=== PATIENT | male | born 1955 | race Caucasian/White ===

== ENCOUNTER 2019-08-27 08:22 | Inpatient (IN) | payer OTHER, SELFPAY ==
[~2019-08-27] VITALS: Ht 182.9 cm; Wt 140.6 kg
[2019-08-27 08:26] VITALS: BP_SYST 132
--- NOTE | 2019-08-27 09:43 | NUR ---
Placed in room 5. Placed on strategic marketing leader, blood pressure machine and pulse oximeter. To gown for exam. Side rails up.
--- NOTE | 2019-08-27 09:43 | NUR ---
Patient brought in by EMS for worsening COVID-19 symptoms. Patient reports feeling SOB, paramedics report O2 sat in the 80's in the field. Patient was placed on O2 at 3LPM via NC.
--- NOTE | 2019-08-27 10:00 | NUR ---
ER Dr. Wiley at bedside examining patient.
[2019-08-27] MEDS ORDERED: NACL 0.9% 1,000 ML IV ONE ×2 (10:30→11:30)
[2019-08-27 10:35] LABS: BASOPHILS % (AUTO) 0.1 % (0.0-2.0); HEMATOCRIT 44.7 % (36-54); HEMOGLOBIN 14.8 g/dL (14.0-18.0); LYMPHOCYTES # (AUTO) 0.7 K/uL (1.0-5.5); MEAN CORPUSCULAR HEMOGLOBIN 31 pg (27-31); MEAN CORPUSCULAR HGB CONC 33 % (32-36); MEAN CORPUSCULAR VOLUME 93 fL (79.0-98.0); MONOCYTES # (AUTO) 0.8 K/uL (0.0-1.0); MONOCYTES % (AUTO) 5.5 % (1.7-9.3); NEUTROPHILS # (AUTO) 13.1 K/uL (1.8-7.7); NEUTROPHILS % (AUTO) 89.4 % (40.0-70.0); PLATELET COUNT (AUTO) 294 K/uL (130-430); RED BLOOD CELL COUNT(AUTO) 4.83 MIL/uL (4.2-6.2); RED CELL DISTRIBUTION WIDTH 13.2 % (9.0-15.0); WHITE BLOOD COUNT (AUTO) 14.7 K/uL (4.8-10.8)
[2019-08-27 10:51] LABS: CALCIUM 8.5 mg/dL (8.4-11.0); CREATININE 1.24 mg/dL (0.55-1.30); POTASSIUM 3.6 mmol/L (3.5-5.1)
[2019-08-27 10:56] LABS: INR 1.1 (0.80-1.20); PROTHROMBIN TIME 11.5 SECS (9.5-12.5); TOTAL BILIRUBIN 1.2 mg/dL (0.0-1.0)
[2019-08-27 11:18] LABS: CKMB RELATIVE INDEX 0.2 (0.0-2.9); CREATINE KINASE MB 0.8 ng/mL (0-3.6)
[2019-08-27] MEDS ORDERED: MAGNESIUM SULFATE 50 ML IV PRN (11:30)
[2019-08-27] MEDS ORDERED: DOCUSATE SODIUM 100 MG CAPSULE PO PRN (11:30)
[2019-08-27] MEDS ORDERED: MUPIROCIN 2% TOPICAL OINTMENT 22 GM NS PRN (11:30)
[2019-08-27] MEDS ORDERED: ONDANSETRON HCL 4 MG/2 ML VIAL IVP PRN (11:30)
[2019-08-27] MEDS ORDERED: POTASSIUM CHLORIDE 20 MEQ TAB.PRT.SR PO PRN (11:30)
[2019-08-27] MEDS ORDERED: cefTRIAXone 1 GM IVPB PREMIX 50 ML IV ONE (11:30)
[2019-08-27] MEDS ORDERED: LORazepam 2 MG/ML VIAL IVP PRN (11:30)
[2019-08-27] MEDS ORDERED: ACETAMINOPHEN 325 MG TABLET PO PRN (11:30)
[2019-08-27] MEDS ORDERED: DEXAMETHASONE SOD PHOSPHATE 10 MG/ML VIAL IVP ONE (11:30)
[2019-08-27] MEDS ORDERED: MORPHINE 2 MG/ML INJ. SYRINGE IVP PRN ×2 (11:30)
[2019-08-27] MEDS ORDERED: DEXAMETHASONE SOD PHOSPHATE 10 MG/ML VIAL ONE (11:38)
--- NOTE | 2019-08-27 11:39 | NUR ---
Patient will be admitted to care of Dr. Holloway. Admitted to telemetry unit. Waiting for room assignment. Belongings list completed. Complete and up to date summary report printed. SBAR report to be given at bedside with opportunity for questions.
[2019-08-27] MEDS ORDERED: OMEG100010 PO (11:56)
[2019-08-27] MEDS ORDERED: IBUP-1816 PO (11:56)
[2019-08-27] MEDS ORDERED: AMLO5TAB92 PO (11:56)
[2019-08-27] MEDS ORDERED: METF-833 PO (11:56)
[2019-08-27] MEDS ORDERED: CHOL200026 PO (11:56)
[2019-08-27] MEDS ORDERED: LISI10TA PO (11:56)
[2019-08-27] MEDS ORDERED: LIP40 PO (11:56)
[2019-08-27] MEDS ORDERED: MONT10TA22 PO (11:56)
--- NOTE | 2019-08-27 11:56 | NUR ---
Medication reconciliation completed with information provided by patient. Any prior medication reconciliation on file was reviewed and corrected.
[2019-08-27] MEDS ORDERED: ENOXAPARIN SODIUM 40 MG/0.4 ML SYRINGE SUBCUT ONE (13:00)
--- NOTE | 2019-08-27 13:45 | NUR ---
Patient placed in hospital bed.
--- NOTE | 2019-08-27 13:58 | NUR ---
Multiple medications not available. Pharmacy notified.
[2019-08-27] MEDS: DECADRON 4 MG TABLET PO SCH ×2 (14:43→15:35)
[2019-08-27] MEDS: AZITHROMYCIN 250 MG TABLET PO ONE ×2 (14:43→15:35)
[2019-08-27] MEDS: ASCORBIC ACID 500 MG TABLET PO ONE ×2 (14:43→15:35)
[2019-08-27] MEDS: CHOLECALCIFEROL (VITAMIN D3) 2,000 UNIT TABLET PO ONE ×2 (14:43→15:36)
[2019-08-27] MEDS: NACL 0.9% 1,000 ML IV SCH (14:57)
[2019-08-27] MEDS ORDERED: ALBUTEROL MDI INHALATION 8 GM INH INH PRN (15:00)
[2019-08-27] MEDS ORDERED: ENOXAPARIN SODIUM 40 MG/0.4 ML SYRINGE ONE (15:04)
[2019-08-27] MEDS ORDERED: MONTELUKAST 10 MG TABLET PO ONE (17:00)
[2019-08-27] MEDS ORDERED: amLODIPine BESYLATE 5 MG TABLET PO ONE (17:00)
[2019-08-27] MEDS ORDERED: LISINOPRIL 10 MG TABLET (PRINIVIL) PO ONE (17:00)
--- NOTE | 2019-08-27 17:00 | NUR ---
Singulair and metformin not available. Spoke with Wagner in pharmacy.
--- NOTE | 2019-08-27 18:20 | NUR ---
Dinner tray provided.
--- NOTE | 2019-08-27 19:10 | NUR ---
Dr. Smith called in for consult.
--- NOTE | 2019-08-27 19:15 | NUR ---
Report given to KACI Emerson for continuation of care. All needs endorsed.
--- NOTE | 2019-08-27 20:20 | NUR ---
VSS no s/s of acute distress Resting on hospital bed rails up
[2019-08-27] MEDS ORDERED: ZOLPIDEM TARTRATE 5 MG TABLET PO PRN (21:00)
--- NOTE | 2019-08-27 21:59 | NUR ---
Utilized O2 Oximizer to 8 L, O2 sat at 98%, Pt states feels much better
--- NOTE | 2019-08-27 23:01 | NUR ---
Pt has large BM via BSC, well tolerated
[2019-08-28] MEDS: NACL 0.9% 1,000 ML IV SCH ×2 (00:07→11:22)
--- NOTE | 2019-08-28 00:12 | NUR ---
Pt states "feeling better." O2 via Oximizer effective, AEB O2 sat remains above 95%
--- NOTE | 2019-08-28 03:30 | NUR ---
Pt had large BM via BSC, well tolerated
--- NOTE | 2019-08-28 05:29 | NUR ---
Pt had 1 x large BM via BSC, well tolerated
[2019-08-28 06:32] LABS: BASOPHILS % (AUTO) 0.2 % (0.0-2.0); HEMATOCRIT 38.6 % (36-54); HEMOGLOBIN 13.1 g/dL (14.0-18.0); LYMPHOCYTES # (AUTO) 0.7 K/uL (1.0-5.5); LYMPHOCYTES % (AUTO) 5.8 % (20.5-51.5); MEAN CORPUSCULAR HEMOGLOBIN 32 pg (27-31); MEAN CORPUSCULAR HGB CONC 34 % (32-36); MEAN CORPUSCULAR VOLUME 94 fL (79.0-98.0); MONOCYTES # (AUTO) 0.6 K/uL (0.0-1.0); MONOCYTES % (AUTO) 5.5 % (1.7-9.3); NEUTROPHILS # (AUTO) 10.4 K/uL (1.8-7.7); NEUTROPHILS % (AUTO) 88.5 % (40.0-70.0); PLATELET COUNT (AUTO) 315 K/uL (130-430); RED CELL DISTRIBUTION WIDTH 13.2 % (9.0-15.0); WHITE BLOOD COUNT (AUTO) 11.7 K/uL (4.8-10.8)
[2019-08-28 06:36] LABS: CALCIUM 7.8 mg/dL (8.4-11.0); CREATININE 1.12 mg/dL (0.55-1.30); POTASSIUM 3.5 mmol/L (3.5-5.1)
--- NOTE | 2019-08-28 06:39 | NUR ---
Pt is working on paperwork to give [facility] auth for COVID pos documentation
--- NOTE | 2019-08-28 07:10 | NUR ---
Report recieved from KACI Emerson for continuation of care.
--- NOTE | 2019-08-28 07:20 | NUR ---
Patient was off monitor, placed back on telemetry monitor. Patient denies any pain or distress at this time. Patient is on oximizer at 6LPM.
[2019-08-28 08:21] LABS: ERYTHROCYTE SEDIMENTATION RATE 63 MM/HR (0-15)
[2019-08-28] MEDS: ENOXAPARIN SODIUM 40 MG/0.4 ML SYRINGE SUBCUT SCH (08:23)
[2019-08-28] MEDS: ASCORBIC ACID 500 MG TABLET PO SCH (08:24)
[2019-08-28] MEDS: AZITHROMYCIN 250 MG TABLET PO SCH (08:24)
[2019-08-28] MEDS: amLODIPine BESYLATE 5 MG TABLET PO SCH (08:25)
[2019-08-28] MEDS: CHOLECALCIFEROL (VITAMIN D3) 2,000 UNIT TABLET PO SCH (08:25)
[2019-08-28] MEDS: LISINOPRIL 10 MG TABLET (PRINIVIL) PO SCH (08:25)
[2019-08-28] MEDS: ATORVASTATIN 20 MG TABLET PO SCH (08:26)
--- NOTE | 2019-08-28 08:44 | NUR ---
Fax recieved from [facility] regarding COVID-19 test. Patient was tested on 08/23/2019, positive test result was reported 08/25/2019.
--- NOTE | 2019-08-28 10:26 | NUR ---
[facility]. Licensed nurse present. IV present no signs or symptoms of infiltration.
--- NOTE | 2019-08-28 10:41 | NUR ---
ADMISSION NOTE Received patient from ER via gayathri, received report from TEZ/ RN. Patient admitted with diagnosis of COVID/PNEUMONIA. Patient oriented to hospital routine, call light, toileting and safety-patient verbalized understanding.
[2019-08-28 10:45] LABS: C-REACTIVE PROTEIN QUANT 22.8 mg/dL (0-0.5)
--- NOTE | 2019-08-28 10:45 | NUR ---
Initial Notes: Received patient from er per gayathri. Placed on telemetry.Iv saline lock at right ac intact. On oximizer 6l/min,with good saturation.On negative pressure room.Patient covid 19 positive,precaution rendered. Awake,alert and oriented x4. Call light with in reach. Bed locked at lowest position. Continue to monitor.
[2019-08-28 11:03] VITALS: BP_SYST 115
--- NOTE | 2019-08-28 11:14 | NUR ---
CONSULTATION PAGED/CALLED Reason for Consultation: [] COVID 19 Person Who was Notified: [] PAGED DIRECTLY Consulting Physician: [] DR ELLIOTTR Library Technical Assistant Specialty: [] PULMO Ordering Physician: [] DR ROCKWELL
--- NOTE | 2019-08-28 11:17 | NUR ---
CONSULTATION PAGED/CALLED Reason for Consultation: [] COVID 19 Person Who was Notified: [] NEO Consulting Physician: [] DR PINZON Master Control Operator Specialty: [] ID Ordering Physician: [] DR ROCKWELL
[2019-08-28 11:42] VITALS: BP_SYST 115
[2019-08-28 11:47] VITALS: BP_SYST 115
--- NOTE | 2019-08-28 12:58 | NUR ---
Lunch: Served lunch to patient.Patient sitting on the bed. No distress.
[2019-08-28] MEDS: DECADRON 4 MG TABLET PO SCH (13:20)
--- NOTE | 2019-08-28 14:39 | NUR ---
Rn Rounds: Patient resting during rounds. Tolerated oximizer 6l/min,good saturation.
--- NOTE | 2019-08-28 15:39 | NUR ---
Pulmo Rounds: Patient seen by Dr. Evans. No new orders made.
[2019-08-28 16:00] VITALS: BP_SYST 102
[2019-08-28] MEDS: MONTELUKAST 10 MG TABLET PO SCH (18:15)
--- NOTE | 2019-08-28 18:40 | NUR ---
CLOSING NOTES: PATIENT AMBULATED TO THE TOILET. DINNER TRAY SERVED. NO ACUTE DISTRESS. CALL LIGHT WITH IN REACH. BED LOCKED AT LOWEST POSITION. CONTINUE TO MONITOR.
--- NOTE | 2019-08-28 19:20 | NUR ---
CHANGE OF SHIFT; pt. endorsed, new admission, no distress. on contact isolation for Covid, room is on negative pressure. call light within reach.
[2019-08-28 20:00] VITALS: BP_SYST 127
--- NOTE | 2019-08-28 20:00 | NUR ---
NOTES; pt. checked, awake, alert and oriented. IV pump alarming, site on rt. antecubital with occlusion , pt. said been alarming all day, request to change IV site. on 6 liters O2 with oximizer, HOB elevated. occ. bouts of non productive cough. moves all extremities. on tag marker and shows sinus rhythm. pt. aware of isolation precaution due to Covid. call light within reach.
--- NOTE | 2019-08-28 21:00 | NUR ---
NOTES; attempted to insert another IV site but unsuccessful, asked nurse Jono, # 20 on left forearm, resume IVF and new IV antibiotic. pt. needs attended. call light within reach.
--- NOTE | 2019-08-28 23:00 | NUR ---
NOTES: pt. awake, ambulated to the restroom. informed pt. that he is having a room mate. IVF continuous.
[2019-08-29] MEDS: NACL 0.9% 1,000 ML IV SCH ×2 (00:20→13:04)
--- NOTE | 2019-08-29 01:18 | NUR ---
NOTES: pt. sleeping when checked. no complaints noted. cardiac pattern unchanged. call light within reach.
--- NOTE | 2019-08-29 04:04 | NUR ---
NOTES: condition observed. pt. been sleeping. IVF continuous. cardiac pattern unchanged.
[2019-08-29 05:30] VITALS: BP_SYST 123
--- NOTE | 2019-08-29 05:30 | NUR ---
NOTES: pt. claims he did not get enough sleep, watched movie on his cellphone. IV continuous. instructed on use of incentive spirometer. still with occ. bouts of non productive cough. ambulated to the restroom. pt. needs attended.calllight within reach.
--- NOTE | 2019-08-29 06:30 | NUR ---
CLOSING NOTES; PT. RESTING, NO DISTRESS O@ KEPT @ 6L PER OXIMIZER. FOR FURTHER CARE AND ASSISTANCE. WILL ENDORSE TO INCOMING SHIFT.
[2019-08-29 07:14] LABS: BASOPHILS % (AUTO) 0.3 % (0.0-2.0); HEMATOCRIT 39.6 % (36-54); HEMOGLOBIN 13.2 g/dL (14.0-18.0); LYMPHOCYTES # (AUTO) 0.6 K/uL (1.0-5.5); LYMPHOCYTES % (AUTO) 4.9 % (20.5-51.5); MEAN CORPUSCULAR HEMOGLOBIN 31 pg (27-31); MEAN CORPUSCULAR HGB CONC 33 % (32-36); MEAN CORPUSCULAR VOLUME 94 fL (79.0-98.0); MONOCYTES # (AUTO) 1.1 K/uL (0.0-1.0); MONOCYTES % (AUTO) 8.5 % (1.7-9.3); NEUTROPHILS # (AUTO) 11.4 K/uL (1.8-7.7); NEUTROPHILS % (AUTO) 86.3 % (40.0-70.0); PLATELET COUNT (AUTO) 374 K/uL (130-430); RED BLOOD CELL COUNT(AUTO) 4.23 MIL/uL (4.2-6.2); RED CELL DISTRIBUTION WIDTH 13.4 % (9.0-15.0); WHITE BLOOD COUNT (AUTO) 13.2 K/uL (4.8-10.8)
[2019-08-29 07:19] LABS: C-REACTIVE PROTEIN QUANT 10.1 mg/dL (0-0.5); CALCIUM 8.2 mg/dL (8.4-11.0); POTASSIUM 3.8 mmol/L (3.5-5.1)
--- NOTE | 2019-08-29 07:30 | NUR ---
OPENING NOTES: RECEIVED PATIENT FROM CONSULTANT [employer]. VICE PRESIDENT JAGUAR BRAND (EX ) NURSE. PATIENT IS AWAKE AND ALERT x4 LAYING DOWN IN BED. PATIENT DENIES ANY PAIN AT THE MOMENT. PATIENT IS TOLERATING OXYGEN ON 8 L VIA OXIMIZER WITH NO SIGNS OF DISTRESS OR SHORTNESS OF BREATH NOTED. IV SITE IS PATENT WITH NO SIGNS OF INFILTRATION NOTED AND RUNNING FLUIDS ORDERED. PATIENT IN STABLE CONDITION. SAFETY, FALL, ASPIRATION, CONTACT AND DROPLET PRECAUTIONS ARE IN PLACE. BED LOCKED IN LOWEST POSITION WITH CALL LIGHT IN REACH. WILL CONTINUE TO MONITOR PATIENT FOR ANY CHANGES.
[2019-08-29 08:00] VITALS: BP_SYST 135
[2019-08-29 08:20] LABS: ERYTHROCYTE SEDIMENTATION RATE 58 MM/HR (0-15)
[2019-08-29] MEDS: ATORVASTATIN 20 MG TABLET PO SCH (09:28)
[2019-08-29] MEDS: AZITHROMYCIN 250 MG TABLET PO SCH (09:29)
[2019-08-29] MEDS: LISINOPRIL 10 MG TABLET (PRINIVIL) PO SCH (09:29)
[2019-08-29] MEDS: ENOXAPARIN SODIUM 40 MG/0.4 ML SYRINGE SUBCUT SCH (09:29)
[2019-08-29] MEDS: CHOLECALCIFEROL (VITAMIN D3) 2,000 UNIT TABLET PO SCH (09:29)
[2019-08-29] MEDS: amLODIPine BESYLATE 5 MG TABLET PO SCH (09:29)
[2019-08-29] MEDS: ASCORBIC ACID 500 MG TABLET PO SCH (09:29)
--- NOTE | 2019-08-29 10:24 | NUR ---
RN ROUNDS: PATIENT IS AWAKE AND ALERT x4 SITTING UP IN BED. PATIENT DENIES ANY PAIN AT THE MOMENT. PATIENT IS TOLERATING OXYGEN ON 6 L OXIMIZER WITH NO SIGNS OF DISTRESS OR SHORTNESS OF BREATH NOTED. IV SITE IS PATENT WITH NO SIGNS OF INFILTRATION NOTED. PATIENT IN STABLE CONDITION. WILL CONTINUE TO MONITOR PATIENT FOR ANY CHANGES.
--- NOTE | 2019-08-29 11:36 | NUR ---
Dietitian Recommendations *Recommend: [facility] diet. *Recommend: double portion of meat and vegetables. *Continue VIT and zinc supplements. *Monitor BG/accuchecks. Please see Nutritional Assessment for details [facility] Addendum: 08/29/19 at [address] [facility] left voicemail for at answering service for [facility] rec. Time: 1201 [facility] Addendum: 08/29/19 at [address] [facility] received call back from Dr. Goldstein 1204. And asked FCO to place order for [facility] diet. [facility] HART
[2019-08-29 12:00] VITALS: BP_SYST 128
--- NOTE | 2019-08-29 12:02 | NUR ---
RN ROUNDS: PATIENT IS AWAKE AND ALERT x4 LAYING DOWN IN BED. PATIENT DENIES ANY PAIN AT THE MOMENT. PATIENT IS TOLERATING OXYGEN ON 6 L OXIMIZER WITH NO SIGNS OF DISTRESS OR SHORTNESS OF BREATH NOTED. IV SITE IS PATENT WITH NO SIGNS OF INFILTRATION NOTED. PATIENT IN STABLE CONDITION. WILL CONTINUE TO MONITOR PATIENT FOR ANY CHANGES.
--- NOTE | 2019-08-29 12:50 | NUR ---
OXYGEN: PATIENT IS TOLERATING OXYGEN ON 6L OXIMIZER. PATIENT WANTS TO TAKE THE ENTIRE THING OFF BUT PATIENT STILL FEELS SHORT OF BREATH. EDUCATED PATIENT ON THE IMPORTANCE OF TITRATING DOWN INSTEAD OF COMPLETELY TAKING IT OFF RIGHT AWAY. PATIENT AGREED TO TITRATE DOWN TO 4L TO SEE HOW HE FEELS. WILL CONTINUE TO MONITOR PATIENT FOR ANY CHANGES.
[2019-08-29] MEDS: DECADRON 4 MG TABLET PO SCH (13:04)
--- NOTE | 2019-08-29 14:23 | NUR ---
RN ROUNDS: PATIENT IS ASLEEP LAYING DOWN IN BED. PATIENT IS TOLERATING OXYGEN ON 4L OXIMIZER WITH NO SIGNS OF DISTRESS OR SHORTNESS OF BREATH NOTED. IV SITE IS PATENT WITH NO SIGNS OF INFILTRATION NOTED. PATIENT IN STABLE CONDITION. WILL CONTINUE TO MONITOR PATIENT FOR ANY CHANGES.
[2019-08-29 16:00] VITALS: BP_SYST 136
--- NOTE | 2019-08-29 16:25 | NUR ---
RN ROUNDS: PATIENT IS AWAKE AND ALERT x4 LAYING DOWN IN BED. PATIENT IS TOLERATING OXYGEN ON ROOM AIR AT THE MOMENT WITH NO SIGNS OF DISTRESS OR SHORTNESS OF BREATH NOTED. PATIENT IN STABLE CONDITION. WILL CONTINUE TO MONITOR PATIENT FOR ANY CHANGES.
--- NOTE | 2019-08-29 17:50 | NUR ---
OXYGEN: OXYGEN TITRATED DOWN TO 2 L VIA OXIMIZER. PATIENT IS TOLERATING IT WELL. NO SIGNS OF DISTRESS OR SHORTNESS OF BREATH NOTED. WILL CONTINUE TO MONITOR.
[2019-08-29] MEDS: MONTELUKAST 10 MG TABLET PO SCH (18:40)
--- NOTE | 2019-08-29 18:43 | NUR ---
CLOSING NOTES: PATIENT IS AWAKE AND ALERT x4 SITTING AT THE SIDE OF THE BED IN A CHAIR. PATIENT DENIES ANY PAIN AT THE MOMENT. PATIENT IS TOLERATING OXYGEN ON ROOM AIR AT THE MOMENT WITH NO SIGNS OF DISTRESS OR SHORTNESS OF BREATH NOTED. IV SITE IS PATENT WITH NO SIGNS OF INFILTRATION NOTED AND RUNNING FLUIDS ORDERED. PATIENT IN STABLE CONDITION. SAFETY, FALL, ASPIRATION, CONTACT AND DROPLET PRECAUTIONS REMAINED IN PLACE THROUGHOUT THE SHIFT. BED LOCKED IN LOWEST POSITION WITH CALL LIGHT IN REACH. WILL ENDORSE PATIENT CARE TO ONCOMING INTELLECTUAL PROPERTY PARALEGAL NURSE.
--- NOTE | 2019-08-29 19:20 | NUR ---
REPORT RECEIVED FROM DAY SHIFT NURSE. PT IS ON OXYGEN VIA OXYMIZER AT 2L/MIN AND NO RESPIRATORY DISTRESS NOTED. IVF OF NS IS INFUSING WELL IN LFA AT 100ML/HR WITHOUT ANY SIGNS OF INFILTRATION. FALL AND SAFETY PRECAUTIONS ARE IN PLACE.
[2019-08-29 20:00] VITALS: BP_SYST 110
--- NOTE | 2019-08-29 21:16 | NUR ---
HS MEDICATIONS GIVEN. NO C/O PAIN OR DISCOMFORT. FALL AND SAFETY PRECAUTIONS ARE IN PLACE. CALL LIGHT IS WITH PT AND BED IS IN THE LOWEST/LOCKED POSITIONS.
--- NOTE | 2019-08-29 23:00 | NUR ---
PT IS SLEEPING COMFORTABLY IN BED WITH OXYGEN ON AT 2L/MIN VIA OXYMIZER. IVF IS INFUSING WELL IN LFA AT 100ML/HR. FALL, DROPLET ISOLATION AND SAFETY PRECAUTIONS ARE IN PLACE.
[2019-08-30] VITALS: BP_SYST 124
[2019-08-30] MEDS: NACL 0.9% 1,000 ML IV SCH ×4 (00:20→23:53)
--- NOTE | 2019-08-30 01:00 | NUR ---
PT CONTINUES TO SLEEP WITHOUT ANY RESPIRATORY DISTRESS NOTED. IVF IS INFUSING WELL IN LFA AT 100ML/HR. FALL, DROPLET ISOLATION AND SAFETY PRECAUTIONS ARE IN PLACE.
--- NOTE | 2019-08-30 03:00 | NUR ---
RESTING QUIETLY IN BED AND NO RESPIRATORY DISTRESS NOTED. IVF IS INFUSING WELL IN LFA.
--- NOTE | 2019-08-30 04:16 | NUR ---
POSITIVE COVID 19 TEST RESULT RECEIVED FROM THE LAB. WILL NOTIFY DR. ROCKWELL IN AM.
--- NOTE | 2019-08-30 06:22 | NUR ---
PT IS AWAKE AND RESTING QUIETLY IN BED. NO RESPIRATORY DISTRESS NOTED. ALL PT'S NEEDS WERE ATTENDED TO. IVF IS INFUSING WELL IN LFA WITHOUT ANY SIGNS OF INFILTRATION. FALL, DROPLET ISOLATION AND SAFETY PRECAUTIONS ARE IN PLACE. WILL ENDORSE TO DAY SHIFT NURSE.
--- NOTE | 2019-08-30 07:23 | NUR ---
REPORT GIVEN TO DAY SHIFT NURSE. ENDORSED POSITIVE COVID TEST RESULT TO DAY SHIFT NURSE TO FOLLOW UP WITH MD.
--- NOTE | 2019-08-30 07:27 | NUR ---
ATTENDING MD DR Glen TAYLOR, STREET LIGHT INSPECTOR FOR DR ROCKWELL WAS CALLED, RE: TO INFORM THAT PT IS POSITIVE FOR INHOUSE FIRST COVID TEST.
[2019-08-30 07:39] LABS: BASOPHILS % (AUTO) 0.2 % (0.0-2.0); HEMOGLOBIN 13.3 g/dL (14.0-18.0); LYMPHOCYTES # (AUTO) 0.5 K/uL (1.0-5.5); LYMPHOCYTES % (AUTO) 4.6 % (20.5-51.5); MEAN CORPUSCULAR HEMOGLOBIN 31 pg (27-31); MEAN CORPUSCULAR HGB CONC 34 % (32-36); MEAN CORPUSCULAR VOLUME 92 fL (79.0-98.0); MONOCYTES # (AUTO) 1.3 K/uL (0.0-1.0); MONOCYTES % (AUTO) 11.4 % (1.7-9.3); NEUTROPHILS # (AUTO) 9.5 K/uL (1.8-7.7); NEUTROPHILS % (AUTO) 83.8 % (40.0-70.0); PLATELET COUNT (AUTO) 369 K/uL (130-430); RED BLOOD CELL COUNT(AUTO) 4.24 MIL/uL (4.2-6.2); RED CELL DISTRIBUTION WIDTH 13.1 % (9.0-15.0); WHITE BLOOD COUNT (AUTO) 11.3 K/uL (4.8-10.8)
[2019-08-30 08:24] LABS: ALBUMIN 2.4 g/dL (3.4-4.8); BILIRUBIN,DIRECT 0.2 mg/dL (0.0-0.3); C-REACTIVE PROTEIN QUANT 5.6 mg/dL (0-0.5); CREATININE 0.94 mg/dL (0.55-1.30); POTASSIUM 3.5 mmol/L (3.5-5.1); TOTAL BILIRUBIN 0.9 mg/dL (0.0-1.0)
--- NOTE | 2019-08-30 08:30 | NUR ---
OPENING NOTES, RECEIVED PT IN BED, PT IS AAOX4, DENIES PAIN, PT IS SOB AFTER WALKING FROM BED TO BATHROOM AND BACK, NO RESP DISTRESS. VITALS WNL, NO FEVER, SAFETY PRECAUTION IN PLACE, CALL LIGHT IN REACH BED IN LOW POSITION. ENCOURAGED TO CALL FOR ANY CONCERNS AND PAIN MEDS. BREAKFAST AND AM MEDS GIVEN.
[2019-08-30 08:36] LABS: ERYTHROCYTE SEDIMENTATION RATE 39 MM/HR (0-15)
[2019-08-30] MEDS: LISINOPRIL 10 MG TABLET (PRINIVIL) PO SCH (08:57)
[2019-08-30] MEDS: ATORVASTATIN 20 MG TABLET PO SCH (08:57)
[2019-08-30] MEDS: amLODIPine BESYLATE 5 MG TABLET PO SCH (08:57)
[2019-08-30] MEDS: CHOLECALCIFEROL (VITAMIN D3) 2,000 UNIT TABLET PO SCH (08:58)
[2019-08-30] MEDS: AZITHROMYCIN 250 MG TABLET PO SCH (08:58)
[2019-08-30] MEDS: ASCORBIC ACID 500 MG TABLET PO SCH (08:58)
[2019-08-30] MEDS: ENOXAPARIN SODIUM 40 MG/0.4 ML SYRINGE SUBCUT SCH (10:14)
--- NOTE | 2019-08-30 10:30 | NUR ---
OXYMIZER REPLACED WITH NC, PT ON O2 1L NC NOW, WILL CONT TO MONITOR. PT REMINDED TO DO INCENTIVE SPIROMETRY EVERY HOUR.
[2019-08-30 11:39] VITALS: BP_SYST 152
--- NOTE | 2019-08-30 12:20 | NUR ---
PT SAT ON O2 2L NC IS 93-94%. PT DENIES PAIN, NO SOB.
[2019-08-30] MEDS: DECADRON 4 MG TABLET PO SCH (12:24)
[2019-08-30 17:30] VITALS: BP_SYST 120
--- NOTE | 2019-08-30 17:30 | NUR ---
PT IN BED, RESTING IN CHAIR, SERVED DINNER, VITALS WNL, NO FEVER, NO SOB, WILL CONT TO MONITOR.
[2019-08-30] MEDS: MONTELUKAST 10 MG TABLET PO SCH (18:34)
--- NOTE | 2019-08-30 18:46 | NUR ---
CLOSING NOTES, PT HAS BEEN STABLE THE WHOLE SHIFT, PT'S O2 SAT ON ROOM AIR THIS PM WAS 92%. PT KEPT ON O2 1LI THE WHOLE SHIFT, WILL ENDORSE TO NIGHT NURSE TO KEEP PT OF O2 NC PER DR TAYLOR AND CHECK O2SAT , IF PT DESAT'S PT CAN BE RECONNECTED TO O2 2L PER NC. WILL ENDORSE TO NIGHT NURSE. DCP IN AM PER DR TAYLOR. U/S ABD TO CHECK LIVER WAS NOT DONE DUE TO PT STILL ON COVID ISOLATION PER RADIOISOTOPE TECHNOLOGIST. PAGED DR TAYLOR AGAIN TO CHECK IF ABDOMINAL U/S IS CRITICAL PER RADIOISOTOPE TECHNOLOGIST.
--- NOTE | 2019-08-30 19:07 | NUR ---
DR TAYLOR SAID IT IS OKAY TO HOLD U/S ABD. WILL DECIDE IN AM FOR DC HOME.
--- NOTE | 2019-08-30 19:30 | NUR ---
OPENING NOTES PT RESTING IN BED, ALERT & ORIENTED X4. BREATHING EVEN AND UNLABORED TO O2 VIA NC AT 1L. VSS. O2 SAT 94%. PT SURESH ANY PAIN OR SOB AT THIS TIME. IVF RUNNING ORDERED RATE. PT TOLERATING WELL. BED LOCKED IN LOWEST POSITION. CALL LIGHT WITHIN REACH. SAFETY AND ISOLATION PRECAUTIONS MAINTAINED. WILL MONITOR.
[2019-08-30 20:00] VITALS: BP_SYST 125
--- NOTE | 2019-08-30 21:35 | NUR ---
MEDICATION PASS SCHEDULED MEDICATION ADMINISTERED ORDERED. DISCUSSED MEDICATIONS ACTIONS AND POTENTIAL SIDE EFFECTS. PT VERBALIZED UNDERSTANDING. NO S/S OF DISTRESS NOTED. BREATHING EVEN AND UNLABORED TO O2 VIA NC AT 1L. CALL LIGHT WITHIN REACH. SIDE RAILS UP. SAFETY AND ISOLATION PRECAUTIONS ARE IN PLACE. WILL CONTINUE TO MONITOR.
[2019-08-31] VITALS: BP_SYST 130
--- NOTE | 2019-08-31 00:05 | NUR ---
RN ROUNDS PT RESTING IN BED. REMAINS OXYGEN 1L. PT SURESH ANY PAIN OR SHORTNESS OF BREATH. IVF RUNNING ORDERED RATE. NO S/S OF INFILTRATION NOTED. CALL LIGHT WITHIN REACH. SIDE RAILS UP. SAFETY AND ISOLATION PRECAUTIONS MAINTAINED. WILL CONTINUE TO MONITOR.
--- NOTE | 2019-08-31 02:35 | NUR ---
RN ROUNDS PT RESTING IN BED WITH EYES CLOSED. CHEST RISE AND FALL SYMMETRICAL. PT SURESH ANY PAIN OR SHORTNESS OF BREATH. IVF RUNNING ORDERED RATE. NO S/S OF INFILTRATION NOTED. CALL LIGHT WITHIN REACH. SIDE RAILS UP. SAFETY AND ISOLATION PRECAUTIONS MAINTAINED. WILL CONTINUE TO MONITOR.
--- NOTE | 2019-08-31 05:00 | NUR ---
RN ROUNDS PT RESTING IN BED. OFF OXYGEN, O2 SAT 94%. PT TOLERATING WELL. PT SURESH SHORTNESS OF BREATH. NO S/S OF DISTRESS NOTED. IVF RUNNING ORDERED RATE. NO S/S OF INFILTRATION NOTED. CALL LIGHT WITHIN REACH. SIDE RAILS UP. SAFETY AND ISOLATION PRECAUTIONS MAINTAINED. WILL CONTINUE TO MONITOR.
--- NOTE | 2019-08-31 07:01 | NUR ---
CLOSING NOTES PT RESTING IN BED. BREATHING EVEN AND UNLABORED TO ROOM AIR. VSS. O2 SAT 94%. PT SURESH ANY PAIN OR SOB AT THIS TIME. IVF RUNNING ORDERED RATE. BED LOCKED IN LOWEST LEVEL. CALL LIGHT WITHIN REACH. SAFETY AND ISOLATION PRECAUTIONS MAINTAINED. ALL NEEDS ARE MET THROUGHOUT SHIFT. WILL MONITOR UNTIL ENDORSE TO DAY SHIFT RN.
--- NOTE | 2019-08-31 07:45 | NUR ---
OPENING, PT SEEN IN BED, AAOX4, DENIES PAIN, NO SOB, ON ROOM , O2 SAT WAS 94%, PT AMBULATED TO BATHROOM AND BACK TO BED, O2 SAT WAS CHECKED ON ROOM AIR, THE LOWEST SAT WAS 91% WHICH WENT UP TO 92-93% AFTER RESTING FOR A WHILE. WILL CONT TO MONITOR PT.
[2019-08-31 07:50] VITALS: BP_SYST 136
[2019-08-31] MEDS: ENOXAPARIN SODIUM 40 MG/0.4 ML SYRINGE SUBCUT SCH (08:00)
--- NOTE | 2019-08-31 08:00 | NUR ---
pt given lovenox sq on the left upper quadrant abd.
[2019-08-31] MEDS: ASCORBIC ACID 500 MG TABLET PO SCH (08:12)
[2019-08-31] MEDS: LISINOPRIL 10 MG TABLET (PRINIVIL) PO SCH (08:12)
[2019-08-31] MEDS: ATORVASTATIN 20 MG TABLET PO SCH (08:12)
[2019-08-31] MEDS: amLODIPine BESYLATE 5 MG TABLET PO SCH (08:12)
[2019-08-31] MEDS: CHOLECALCIFEROL (VITAMIN D3) 2,000 UNIT TABLET PO SCH (08:12)
[2019-08-31] MEDS: AZITHROMYCIN 250 MG TABLET PO SCH (08:13)
[2019-08-31] MEDS ORDERED: DEC4 PO (09:25)
[2019-08-31] MEDS ORDERED: AZIT250T PO (09:25)
[2019-08-31] MEDS ORDERED: APIX2.5T PO (09:25)
[2019-08-31 10:41] VITALS: BP_SYST 136
--- NOTE | 2019-08-31 11:30 | NUR ---
dc instuction discussed with pt including the covid 19 isolation, brochure discussed and given re covid to patient.
[2019-08-31 12:00] VITALS: BP_SYST 128
--- NOTE | 2019-08-31 12:40 | NUR ---
D/C Patient Patient given medication reconciliation form and D/C instructions. Exit Care provided. Patient verbalized understanding. MD discussed with patient the results and treatment provided. Ambulatory with steady gait for discharge to home. Patient in stable condition, ID band removed. IV catheter removed, intact and dressing applied, no active bleeding. Rx of given. Patient educated on pain management. All belongings sent with patient.
--- NOTE | 2019-09-05 12:01 | NUR ---
DISCHARGE FOLLOW UP CALL: HOSPITALITY AMBASSADOR phoned pt @ [phone] and spoke with spouse, Wendy. Per spouse, pt is "really good" and pt's "fatigue went down" and "appetite increased". Pt's last dose of medication is today and the patient has been isolating himself since he went home. Pt also has a follow up appointment with his PCP tomorrow 09/05. No questions on the discharge and prescription instructions. HOSPITALITY AMBASSADOR encouraged spouse to call SS if any questions arise. No further SS call needed.
== END 2019-08-31 12:40 | disposition home or self-care (01) | DRG 871 ==
LOC: SED 08:22 → STU 11:31
PROVIDERS: ADMIT General Practice; ATTEND General Practice
DX: A41.89 Other specified sepsis (principal); U07.1 COVID-19; J96.01 Acute respiratory failure with hypoxia; J12.89 Other viral pneumonia; E44.0 Moderate protein-calorie malnutrition; E87.1 Hypo-osmolality and hyponatremia; Z68.41 Body mass index [BMI] 40.0-44.9, adult; E78.5 Hyperlipidemia, unspecified; G47.33 Obstructive sleep apnea (adult) (pediatric); I10 Essential (primary) hypertension; R74.0 Nonspecific elevation of levels of transaminase and lactic acid dehydrogenase [LDH]; E66.01 Morbid (severe) obesity due to excess calories; F43.9 Reaction to severe stress, unspecified; E11.9 Type 2 diabetes mellitus without complications; Z80.0 Family history of malignant neoplasm of digestive organs
CPT/HCPCS: 36415; 71045; 80048; 80053; 80076; 82550-TC; 82553-TC; 82728; 83036; 83605; 83615-TC; 83735-TC; 83880; 84484; 85025; 85379; 85384-TC; 85610-TC; 85651-TC; 85730-TC; 86140; 87040-TC; 93005; 94760; 96361; 96365; 96372; 96375; 99291; G0378; J0696; J1100; J1650; J7030; J7050; J8540; Q0144; U0003-CS

== ENCOUNTER 2020-05-28 18:20 | Emergency (ER) | payer OTHER, SELFPAY ==
[~2020-05-28] VITALS: Ht 167.6 cm; Wt 117.9 kg
[~2020-05-28 18:20] MED LIST: AMLO5TAB92 PO; APIX2.5T PO; CHOL200026 PO; DEC4 PO; IBUP-1816 PO; LIP40 PO; LISI10TA PO; METF-833 PO; MONT10TA22 PO; OMEG100010 PO; ZIT250 PO
--- NOTE | 2020-05-28 18:34 | NUR ---
Patient to ER bed 07 to gown for evaluation. Side rails up.
[2020-05-28 18:35] VITALS: BP_SYST 143
--- NOTE | 2020-05-28 18:40 | NUR ---
HERE FOR C/O RT SHOULDER PAIN. DENIES INJURY, CIRCULATION AND SENSATION INTACT. NO LIMITED ROM OBSERVED, CALM, ALERT, NO DISTRESS.
--- NOTE | 2020-05-28 18:42 | NUR ---
DR LEWIS AT BEDSIDE TO ASSESS
--- NOTE | 2020-05-28 19:05 | NUR ---
Received endorsemet from KACI Archibald, AAOX4, breathig spontaneously at room air , not in distress noted, vital signs stable, still complaining of left shoulder pain 10/31.
[2020-05-28] MEDS ORDERED: NAPR-690 PO ×2 (19:07→19:13)
[2020-05-28] MEDS ORDERED: KETOROLAC TROMETHAMINE 30 MG VIAL IM ONE (19:15)
--- NOTE | 2020-05-28 19:34 | NUR ---
Toradol 30mg IM once as ordered given at left deltoid muscle.
[2020-05-28 19:36] VITALS: BP_SYST 132
--- NOTE | 2020-05-28 19:36 | NUR ---
Patient given written and verbal discharge instructions and verbalizes understanding. ER MD discussed with patient the results and treatment provided. Patient in stable condition. ID arm band removed. Rx of given. Patient educated on pain management and to follow up with PMD. Pain Scale 5/10. Opportunity for questions provided and answered. Medication side effect fact sheet provided.
== END 2020-05-28 19:36 | disposition home or self-care (01) ==
LOC: SED 18:20
DX: M25.511 Pain in right shoulder (principal); Z79.899 Other long term (current) drug therapy
CPT/HCPCS: 96372; 99283; J1885